=== PATIENT | male | born 1955 | race Caucasian/White ===

== ENCOUNTER 2016-07-03 18:59 | Emergency (ER) | payer OTHER ==
[2016-07-03 19:11] VITALS: RESP 16; TEMP 99
[2016-07-03 19:52] LABS: COLOR YELLOW; LEUKOCYTE ESTERASE,URINE 3+ (NEGATIVE); NITRITE,URINE POSITIVE (NEGATIVE)
[2016-07-03 20:05] LABS: BACTERIA 2+ /hpf (NONE SEEN); MUCUS TRACE /lpf (NONE-1+); RBC,URINE 25-50 /hpf (0-3); WBC,URINE 50-182 /hpf (0-3)
--- NOTE | 2016-07-03 20:16 | EDPHY ---
H & P Smoking Status: Never smoked Time Seen by Provider: 07/03/16 20:09 HPI/ROS: CHIEF COMPLAINT: Right testicular pain HISTORY OF PRESENT ILLNESS: 60-year-old male presents to the emergency department with pain in his right testicle for the last 2 days. He denies any known trauma or injury. States that he developed some mild pain yesterday which has become significantly worse. He denies abdominal pain or back pain. Denies any urinary symptoms. No fevers or chills. He has never had symptoms like this in the past. REVIEW OF SYSTEMS: Constitutional: No fever, no chills. Eyes: No double or blurry vision. ENT: No sore throat. Respiratory: No cough, no shortness of breath. Cardiac: No chest pain. Gastrointestinal: No abdominal pain, vomiting or diarrhea. Genitourinary: No dysuria. Musculoskeletal: No neck or back pain. Skin: No rashes. Neurological: No headache. (Radha Altamirano) Past Medical/Surgical History: Orthopedic surgery, hypertension, psoriatic arthritis (Radha Altamirano) Social History: and lives in [place] (Radha Altamirano) Physical Exam: General Appearance: Alert, no distress. Afebrile, temperature 37.2 Eyes: Pupils equal and round. Extraocular motions are all intact. ENT: Mouth: Mucous membranes moist. Respiratory: No wheezing, rhonchi, or rales, lungs are clear to auscultation. Cardiovascular: Regular rate and rhythm. Gastrointestinal: Abdomen is soft and nontender, no masses, no rebound or guarding, bowel sounds normal. Neurological: Alert and oriented x 3, cranial nerves II through XII grossly intact Skin: Warm and dry, no rashes. Genitourinary: Circumcised penis. Right testicle is swollen and very firm and very tender to palpate. Is redness. Mild warmth. Difficult to appreciate hernia on the right side given how swollen the right testicle is. No hernia on the left side. No evidence of tinea rash. Musculoskeletal: Nontender to palpate along the cervical, thoracic or lumbar spine. Neck is supple. Extremities: Full range of motion and no peripheral edema. Psychiatric: Patient is oriented X 3, there is no agitation. (Radha Altamirano) Constitutional: Initial Vital Signs Temperature (C) 37.2 C 07/03/16 19:08 Heart Rate 83 07/03/16 19:08 Respiratory Rate 16 07/03/16 19:08 Blood Pressure 146/80 H 07/03/16 19:08 O2 Sat (%) 94 07/03/16 19:08 O2 Delivery Mode Room Air Allergies/Adverse Reactions: No Known Allergies Allergy (Unverified 01/13/11 20:49) Home Medications: Medication Instructions Recorded Lisinopril 07/03/16 Lumigan 0.01% (*) 07/03/16 Remicade Inj 100 mg (*) 07/03/16 levOFLOXACIN [Levaquin] 500 mg PO DAILY #21 tablet 07/03/16 oxyCODONE/APAP 5/325 [Percocet 1 - 2 tab PO Q4-6PRN PRN #15 tab 07/03/16 5/325] Medical Decision Making - Diagnostics Imaging: Testicular ultrasound reveals evidence of epididymitis with edema extending into the right spermatic cord. Testicles appear normal. There is a hydrocele present on the right side and a small hydrocele on the left. This was reported to me by Dr. Eloy Singh at 9:21 p.m.. (Radha Altamirano) ED Course/Re-evaluation: The patient was evaluated and managed by the physician's gynecological assistant. My cosignature indicates that I reviewed the chart and I agree with the findings and plan of care as documented. I am the secondary supervising physician. ( Dbei Barnett) 60-year-old male presents with swelling and pain to the right testicle. Ultrasound reveals epididymitis with edema extending up the spermatic cord. Testicles appear normal. There is also an associated hydrocele on the right side. There is a small hydrocele on the left. I spoke with the on-call urologist, Dr. Chao Herman, who recommended giving the patient IV Rocephin in the emergency department and agreed with oral Levaquin. The patient was offered admission to the hospital. He is comfortable being discharged home. He will follow up with Urology on Wednesday. The patient tells me that he has a history of kidney stones and has seen Dr. Guevara. The patient will follow up with either urologist on Wednesday to recheck. The patient was given strict instructions on returning to the emergency department if he developed increasing pain, increasing swelling, fever, or if he felt worse in any way. This patient was also seen and examined by Dr. Debi Barnett. This patient has no evidence of Waylon's gangrene. He was given strict instructions to return if he developed increasing pain or swelling or any other concerns. (Radha Altamirano) Differential Diagnosis: Including but not limited to cellulitis, epididymitis, waylon's gangrene, abscess, testicular torsion (Radha Altamirano) - Data Points Laboratory Results: Laboratory Results 07/03/16 21:55 07/03/16 21:55 07/03/16 07/03/16 07/03/16 21:55 21:55 19:27 WBC 13.62 10^3/uL H 10^3/uL (3.80-9.50) RBC 4.54 10^6/uL 10^6/uL (4.40-6.38) Hgb 13.9 g/dL g/dL (13.7-17.5) Hct 40.8 % % (40.0-51.0) MCV 89.9 fL fL (81.5-99.8) MCH 30.6 pg pg (27.9-34.1) MCHC 34.1 g/dL g/dL (32.4-36.7) RDW 12.9 % % (11.5-15.2) Plt Count 211 10^3/uL 10^3/uL (150-400) MPV 11.5 fL fL (8.7-11.7) Neut % (Auto) 71.5 % % (39.3-74.2) Lymph % (Auto) 17.3 % % (15.0-45.0) [place] % (Auto) 9.3 % % (4.5-13.0) Eos % (Auto) 1.2 % % (0.6-7.6) Baso % (Auto) 0.4 % % (0.3-1.7) Nucleat RBC Rel Count 0.0 % % (0.0-0.2) Absolute Neuts (auto) 9.74 10^3/uL H 10^3/uL (1.70-6.50) Absolute Lymphs (auto) 2.36 10^3/uL 10^3/uL (1.00-3.00) Absolute Monos (auto) 1.26 10^3/uL H 10^3/uL (0.30-0.80) Absolute Eos (auto) 0.17 10^3/uL 10^3/uL (0.03-0.40) Absolute Basos (auto) 0.05 10^3/uL 10^3/uL (0.02-0.10) Absolute Nucleated RBC 0.00 10^3/uL 10^3/uL (0-0.01) Immature Gran % 0.3 % % (0.0-1.1) Immature Gran # 0.04 10^3/uL 10^3/uL (0.00-0.10) Sodium 142 mEq/L mEq/L (134-144) Potassium 3.8 mEq/L mEq/L (3.5-5.2) Chloride 107 mEq/L mEq/L (97-110) Carbon Dioxide 23 mEq/l mEq/l (22-31) Anion Gap 12 mEq/L mEq/L (8-16) BUN 15 mg/dL mg/dL (7-23) Creatinine 0.7 mg/dL mg/dL (0.7-1.3) Estimated GFR > 60 Glucose 102 mg/dL H mg/dL (70-100) Calcium 9.4 mg/dL mg/dL (8.5-10.4) Urine Color YELLOW Urine Appearance MODERATELY TURBID Urine pH 5.0 (5.0-7.5) Ur Specific [place] 1.021 (1.002-1.030) Urine Protein 2+ H (NEGATIVE) Urine Ketones NEGATIVE (NEGATIVE) Urine Blood 3+ H (NEGATIVE) Urine Nitrate POSITIVE H (NEGATIVE) Urine Bilirubin NEGATIVE (NEGATIVE) Urine Urobilinogen NEGATIVE EU EU (0.2-1.0) Ur Leukocyte Esterase 3+ H (NEGATIVE) Urine RBC 25-50 /hpf H /hpf (0-3) Urine WBC 50-182 /hpf H /hpf (0-3) Ur Epithelial Cells NONE SEEN /lpf /lpf (NONE-1+) Urine Bacteria 2+ /hpf H /hpf (NONE SEEN) Urine Mucus TRACE /lpf /lpf (NONE-1+) Urine Glucose NEGATIVE (NEGATIVE) Medications Given: Discontinued Medications Ceftriaxone Sodium/Dextrose (Rocephin 1 Gm (Premix)) 50 mls @ 100 mls/hr IV EDNOW ONE PRN Reason: Protocol Stop: 07/03/16 22:09 Last Admin: 07/03/16 21:57 Dose: 50 mls Levofloxacin (Levaquin) 500 mg PO EDNOW ONE PRN Reason: Protocol Stop: 07/03/16 23:04 Last Admin: 07/03/16 23:34 Dose: 500 mg Oxycodone/Acetaminophen (Percocet 5/325mg Prepack#4) 1 btl TAKEHOME EDNOW ONE Stop: 07/03/16 23:29 Last Admin: 07/03/16 23:40 Dose: 1 btl Departure - Departure Disposition: Home, Routine, Self-Care Clinical Impression: Epididymitis, right Condition: Fair Instructions: Oxycodone/Acetaminophen (By mouth), Levofloxacin (By mouth), Epididymitis (ED), Scrotal Pain (ED) Additional Instructions: Elevate scrotum for comfort. Ibuprofen 600 mg every 8 hours as needed for pain. Levaquin 500 mg daily as directed. Call [phone] for the results of your urine culture in 48 hours. Return to the emergency department if you develop a fever, increasing pain, or if you feel worse in any way. Referrals: Chao Herman MD [Medical Doctor] - 1-2 days without fail (Urologist on-call) Genoveva Guevara MD [Medical Doctor] - 1-2 days without fail Prescriptions: levOFLOXACIN [Levaquin] 500 mg PO DAILY #21 tablet oxyCODONE/APAP 5/325 [Percocet 5/325] 1 - 2 tab PO Q4-6PRN PRN #15 tab PRN Reason: For Moderate To Severe Pain
[2016-07-03 22:41] LABS: % IMMATURE GRANULYOCYTES 0.3 % (0.0-1.1); ABSOLUTE IMMATURE GRANULOCYTES 0.04 10^3/uL (0.00-0.10); ADD DIFF? NO; ADD MORPH? NO; ADD SCAN? NO; ATYPICAL LYMPHOCYTE FLAG 0 (0-99); FRAGMENT RBC FLAG 0 (0-99); HEMATOCRIT 40.8 % (40.0-51.0); HEMOGLOBIN 13.9 g/dL (13.7-17.5); LEFT SHIFT FLG 0 (0-99); LIPEMIA HEMOLYSIS FLAG 90 (0-99); MEAN CELL HEMOGLOBIN 30.6 pg (27.9-34.1); MEAN CELL HEMOGLOBIN CONCENTR. 34.1 g/dL (32.4-36.7); MEAN CELL VOLUME 89.9 fL (81.5-99.8); MEAN PLATELET VOLUME 11.5 fL (8.7-11.7); PLATELET CLUMPS FLAG 20 (0-99); PLATELET COUNT 211 10^3/uL (150-400); RED BLOOD CELL COUNT 4.54 10^6/uL (4.40-6.38); RED CELL DISTRIBUTION WIDTH 12.9 % (11.5-15.2)
[2016-07-03 22:47] LABS: ANION GAP 12 mEq/L (8-16); CALCIUM 9.4 mg/dL (8.5-10.4); CARBON DIOXIDE 23 mEq/l (22-31); CHLORIDE 107 mEq/L (97-110); CREATININE 0.7 mg/dL (0.7-1.3); GLOMERULAR FILTRATION RATE > 60; GLUCOSE 102 mg/dL (70-100); POTASSIUM 3.8 mEq/L (3.5-5.2); SODIUM 142 mEq/L (134-144)
[2016-07-03] MEDS ORDERED: OXYCODONE/APAP 5/325MG PREPACK#4 BTL TAKEHOME ONE (23:28)
[2016-07-03 23:42] VITALS: BP 132/77; PULSE 85; O2SAT 94
== END 2016-07-03 23:42 | disposition home or self-care (01) ==
DX: N45.1 Epididymitis (principal); I10 Essential (primary) hypertension
CPT/HCPCS: 96374; J0696